=== PATIENT | male | born 1985 | race Caucasian/White ===

== ENCOUNTER 2019-07-20 07:19 | Emergency (ER) | payer MEDICAID, SELFPAY ==
[2019-07-20 07:20] VITALS: BP 149/99; PULSE 96; RESP 24; TEMP 36.3; O2SAT 97; BMI 47.2
[2019-07-20 07:30] VITALS: O2SAT 95
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
[2019-07-20] MEDS: fentaNYL 100 MCG/2 ML Ampul 50 MCG IV (07:38)
[2019-07-20 07:40] VITALS: BP 149/99; PULSE 95; RESP 24; O2SAT 95
--- NOTE | 2019-07-20 07:48 | ED.RN ---
CALLED PT'S AND NOTIFIED HER OF THE PT STATUS AND WHERE HE WAS BEING TRANSFERRED TO.
== END 2019-07-20 07:49 | disposition short-term general hospital (02) ==
PROVIDERS: Emergency Provider Emergency Medicine; PCP Family Medicine
DX: S72.92XA Unspecified fracture of left femur, initial encounter for closed fracture (principal); S29.9XXA Unspecified injury of thorax, initial encounter; S39.91XA Unspecified injury of abdomen, initial encounter; V54.5XXA Driver of pick-up truck or van injured in collision with heavy transport vehicle or bus in traffic accident, initial encounter; Y93.89 Activity, other specified; Y92.410 Unspecified street and highway as the place of occurrence of the external cause; Y99.8 Other external cause status; F17.200 Nicotine dependence, unspecified, uncomplicated
CPT/HCPCS: 96374; 99285; J7030; A4216

== ENCOUNTER 2019-07-27 13:02 | Inpatient (IN) | payer MEDICAID, SELFPAY ==
[2019-07-27] VITALS (9 sets, daily range): BP systolic 127–151; BP diastolic 68–75; PULSE 101–110; RESP 16–20; TEMP 37.4–39.5; O2SAT 94–99; BMI 43.2
--- NOTE | 2019-07-27 13:25 | RAD_ITS ---
STUDY: X-RAY CHEST REASON FOR EXAM: Male, 33 years old. Shortness of breath. TECHNIQUE: Single AP portable view of the chest. COMPARISON: None. FINDINGS: There is evidence of a subcutaneous emphysema overlying the right lateral chest wall. Mild increased markings at the lung bases slightly more prominent on the left side suggestive of bibasilar atelectasis. Questionable 2.6 cm x 1.2 cm nodule in the right midlung. There is no demonstrated pleural abnormality. Normal size heart. Normal mediastinum and emilee. Normal visualized pulmonary arteries. Normal visualized aortic arch and descending thoracic aorta. Normal visualized thoracic spine. Normal visualized ribs, clavicles, and shoulders. There is no demonstrated abnormality of the visualized soft tissue structures of the upper abdomen. RAD/Chest 1 View (Portable) IMPRESSION: Increased markings at the lung bases more prominent on the left side suggestive of atelectasis. Questionable 2.6 cm x 1.2 cm nodule in the medial aspect of the right midlung. Subcutaneous emphysema overlying the right lateral chest wall. Follow-up is recommended. Electronically Signed: Kp Ritter, at 14:45 EDT , Service support ,
[2019-07-27 14:11] LABS: Hematocrit 29.6 % (40-54); Hemoglobin 10.1 g/dL (13.0-16.5); Mean Corp Hgb Conc 34.1 g/dL (32-36); Mean Corpuscular Volume 96.7 fL (80-94); POSITIVE COUNT YES; POSITIVE DIFFERENTIAL YES; POSITIVE MORPHOLOGY YES; Platelet Count 297 K/mm3 (150-450); RBC Distribution Width CV 12.3 % (11.6-14.6); Red Blood Count 3.06 M/mm3 (4.6-6.2); White Blood Count 5.7 K/mm3 (4.4-11.0)
[2019-07-27 14:14] LABS: Differential Indicated MANUAL DIFF
[2019-07-27] MEDS: Acetaminophen 500 MG Tablet 1000 MG PO ×2 (14:21→22:53)
[2019-07-27 14:27] LABS: ALB/GLOB Ratio 0.6 RATIO (0.9-2.4); AST(SGOT) 72 U/L (15-37); Alanine Aminotransfer ALT/SGPT 105 U/L (16-61); Albumin, Serum 2.6 g/dL (3.2-5.0); Alkaline Phosphatase 104 U/L (45-117); Anion Gap 7 (5-15); BUN 15 mg/dL (7-18); BUN/Creat Ratio 20.3 RATIO (10-20); Calcium,Total 8.8 mg/dL (8.5-10.1); Chloride 101 mmol/L (98-107); Creatinine, Serum 0.74 mg/dL (0.70-1.30); EST Glomerular Filtration Rate 128 mL/min (>60); Est Glom Filt Rate - Afr Amer 155 mL/min (>60); Estimated Creatinine Clearance 130.26 ml/min; Globulin 4.2 g/dL (2.2-4.2); Glucose 100 mg/dL (74-106); Potassium 4.1 mmol/L (3.5-5.1); Protein, Total 6.8 g/dL (6.4-8.2); Sodium Level 135 mmol/L (136-145)
[2019-07-27 14:48] LABS: Eosinophil 2 % (0-5); Lymphocyte 8 % (19-41); Metamyelocyte 1 % (0-1); Monocyte 5 % (0-10); Neutrophil-Segmented 84 % (47-70); Platelet Estimate ADEQUATE (ADEQ); Red Cell Morphology NORM C+C NORMAL (NORM C&C); Total Cells Counted 100 (MANUAL DIFF)
[2019-07-27 14:50] LABS: Absolute Lymphocyte Count 0.46 X10^3/uL (0.83-4.51); Absolute Neutrophil Count 4.8 X10^3/uL (2.0-7.7)
[2019-07-27 16:32] LABS: Bacteria 0 SEEN /hpf (None Seen); Mucous, Urine 0 SEEN /hpf (<or=2+)
[2019-07-27 16:34] LABS: Color, Urine Yellow (Yellow); Glucose, Dipstick Normal (Normal); Ketone-Dipstick 5 mg/dl (Negative); Leukocyte Esterase-Dipstick 25 /ul (Negative); Nitrite-Dipstick Negative (Negative); Occult Blood-Urine 50 /ul (Negative); Protein-Dipstick 15 mg/dl (Negative); Specific Gravity, Urine 1.015 (1.002-1.030); Urine Clarity Clear (Clear); Urine Urobilinogen 4 mg/dl (Normal)
[2019-07-27 16:41] LABS: Urine Bilirubin Dipstick 1 mg/dL (Negative)
[2019-07-27 16:50] LABS: Red Blood Cells-Urine 0-5 SEEN /hpf (0-5); Squamous Epithelial Cells - UA 0-5 SEEN /hpf (0-5); White Blood Cells 0-5 SEEN /hpf (0-5)
--- NOTE | 2019-07-27 18:01 | PCM.RX.CS ---
Consult Pharmacy has been consulted to manage selected antiobiotic: Vancomycin Type of Consult: New start Labs: Sodium 135 mmol/L (136-145) L 07/27/19 13:45 Potassium 4.1 mmol/L (3.5-5.1) 07/27/19 13:45 Chloride 101 mmol/L (98-107) 07/27/19 13:45 Carbon Dioxide 27.0 mmol/L (21.0-32.0) 07/27/19 13:45 Anion Gap 7 (5-15) 07/27/19 13:45 BUN 15 mg/dL (7-18) 07/27/19 13:45 Creatinine 0.74 mg/dL (0.70-1.30) 07/27/19 13:45 Est GFR (MDRD) Af Amer 155 mL/min (>60) 07/27/19 13:45 Est GFR (MDRD) Non-Af 128 mL/min (>60) 07/27/19 13:45 BUN/Creatinine Ratio 20.3 RATIO (10-20) H 07/27/19 13:45 Glucose 100 mg/dL (74-106) 07/27/19 13:45 Goal Trough: 15-20 mcg/mL Pharmacy Plan for Drug Dosing: NEW START IV VANCOMYCIN Consulting Physician: Sementi Indication: Unknown (no progress note/ note in chart at this time) Goal Trough: 15-20 SrCr: 0.74 CrCl: 130 mL/min Comments: Initial 15mg/kg dose ordered with trough goal of 15-20. Plan is 2000mg IV ordered (admin time 07/26 @1725), then start scheduled dosing Vancomcyin Dose: 1500mg IV Q8hr to start 07/28/19 @0100 Pending Level: 07/28/19 @1630 (Prior to 4th total dose per protocol) Pharmacy Service will continue to monitor and adjust dosing as required.
[2019-07-27] MEDS: 0.9% Saline Lock 10 ML Syringe IV (19:47)
[2019-07-27] MEDS: Magnesium Hydroxide 30 ML UDC PO (19:48)
[2019-07-27] MEDS: oxyCODONE 5 MG Tablet PO (20:02)
--- NOTE | 2019-07-27 21:00 | NURSING ---
PT RATING PAIN A #15, VITALS OBTAINED. PT STATES PAIN GOES AWAY WHEN HE EXHALES, BUT THEN RETURNS WHEN INHALES. COLOR IS PINK. SKIN WARM AND DRY.
[2019-07-27] MEDS: Methocarbamol 750 MG Tablet PO (21:09)
--- NOTE | 2019-07-27 21:10 | NURSING ---
MEDICATED WITH ROBAXIN. SHARP PAIN TO L FLANK. CALL PLACED TO [facility] DEPUTY SHERIFF CHIEF TO LOAN HOSPITALIST.
--- NOTE | 2019-07-27 21:18 | NURSING ---
PT C/O PAIN RATED #8 WHCIH EXTENDS FROM L ABDOMEN UP THROUGH L CHEST. PT ROLLED TO R SIDE WITH SLIGHT RELIEF.
--- NOTE | 2019-07-27 21:20 | NURSING ---
DR SANTILLAN PHONES INTO UNIT. INFORMED OF PT'S PAIN. ORDERS GIVEN.
--- NOTE | 2019-07-27 21:23 | EKG12_ITS ---
Test Reason : CP Blood Pressure : / mmHG Vent. Rate : 100 BPM Atrial Rate : 100 BPM P-R Int : 150 ms QRS Dur : 086 ms QT Int : 328 ms P-R-T Axes : 057 053 -15 degrees QTc Int : 423 ms Normal sinus rhythm Poor R wave progression Confirmed by RONNIE HENSLEY, JUAN ([id number]), purchase request editor TERRI PICHARDO ([id number]) on 08/03/2019 1:10:55 PM Referred By: ANGELA Confirmed By:JUAN TRUJILLO MD
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
--- NOTE | 2019-07-27 21:38 | NURSING ---
EKG IN PROGRESS.
[2019-07-27] MEDS: Aspirin 325 MG Tablet PO (21:44)
--- NOTE | 2019-07-27 22:00 | NURSING ---
TO X RAY WITH ACCOUNTS PAYABLE CLERK STAFF MEMBER VIA WHEELCHAIR. PT FEELS SLIGHTLY DIZZY UPON TRANSFERRING TO W/C.
--- NOTE | 2019-07-27 22:15 | RAD_ITS ---
STUDY: X-RAY - ABDOMEN/PELVIS REASON FOR EXAM: Male, 33 years old. ABD., CHEST, AND LEFT FLANK PAIN 4 TECHNIQUE: AP supine and decubitus views of the abdomen and pelvis. COMPARISON: None. FINDINGS: Normal visualized lung bases. Mild gaseous distention of multiple small bowel loops noted throughout the abdomen as well as several air-fluid levels suggesting either ileus or a partial obstruction. There is no demonstrated free abdominal air. The visualized liver, spleen and kidneys are grossly normal in size and morphology. Normal soft tissue structures. A left femur intramedullary ramirez is partially visualized. RAD/Abd Inc Decub and/or Erect IMPRESSION: 1. Mild gaseous distention of multiple small bowel loops noted throughout the abdomen as well as several air-fluid levels suggesting either ileus or a partial obstruction. Electronically Signed: Stefan Malave MD at 23:31 EDT , Service support ,
--- NOTE | 2019-07-27 22:26 | NURSING ---
PT REMAINS IN XRAY. INCREASED DIZZINESS. WILL RETURN TO UNIT VIA A CART.
--- NOTE | 2019-07-27 22:36 | NURSING ---
RETURN FROM XRAY VIA CART AND [LACED IN ROOM. TROPONIN#1 BEING DRAWN.
[2019-07-27] MEDS: Enoxaparin 60 MG/0.6 ML Syringe SC (22:54)
[2019-07-27] MEDS: Docusate Sodium 100 MG Capsule PO (22:54)
[2019-07-27] MEDS: BACITRACIN 15 GM Tube 1 APPLIC TOPICAL (22:54)
--- NOTE | 2019-07-27 23:10 | NURSING ---
DR SANTILLAN IN PT'S ROOM TO TALK TO PT AND LOOKS AT EKG. NO NEW ORDERS.
--- NOTE | 2019-07-27 23:20 | NURSING ---
PT APPEARS MORE RESTFUL. STATES PAIN HAS EASED INTO A #7-8. VOIDS 400 ML ABY URINE. PVR 0.
[2019-07-28] VITALS (8 sets, daily range): BP systolic 121–135; BP diastolic 69–92; PULSE 82–109; RESP 12–18; TEMP 36.8–37.8; O2SAT 95–99
--- NOTE | 2019-07-28 01:07 | NURSING ---
SPOKE WITH BENJAMÍN IN PHARMACY. PT IS DIFFICULT IV STICK AND ZOSYN WILL CONTINUE TO INFUSE AT 12.5ML/HR FOR A WHILE MAKING VANCO DOSE LATE CURRENTLY ORDERED. ADVISED TO COMPLETE ZOSYN INFUSION AND HANG VANC AFTERWARDS AND THEN GET RETURN TO VANC SCHEDULED.
--- NOTE | 2019-07-28 01:32 | PCM.PN.BLA ---
Progress Note Nurse reported patient was complaining of increased left flank pain. Patient was observed at the bedside. Tender left flank. Unremarkable physical examination otherwise. Chest x-ray showed some gliosis. Abdominal x-ray showed a possible ileus or small bowel obstruction. Will make patient n.p.o. except meds with sips of water at this time. Troponin series negative. STROKE Vital Signs/Narrative: Vital Signs Temp Pulse Resp BP Pulse Ox 07/27/19 22:00 99.9 F H 108 H 16 137/68 H 99
--- NOTE | 2019-07-28 01:33 | NURSING ---
DR SANTILLAN AWARE OF PT'S KUB XRAY RESULTS AND PT IS TO BE NPO, MEDS ONLY.ALSO STATES TO ENCOURAGE INCENTIVE SPIROMETER.
--- NOTE | 2019-07-28 02:00 | NURSING ---
PT HAS BEEN RESTING QUIETLY WITH EYES CLOSED. AWAKENED FOR VITAL SIGNS. PT INFORMED OF HIS NPO (MEDS ONLY) STATUS A RESULT OF HIS XRAY READING. PT RATES CHEST AND L FLANK PAIN #6 PAIN-MEDICATED.
[2019-07-28] MEDS: oxyCODONE 5 MG Tablet PO ×3 (02:14→18:01)
--- NOTE | 2019-07-28 03:00 | NURSING ---
PT UP TO BSC AND PASSES FLATUS AND REPORTS TO FEEL BETTER AFTERWARDS. NO BM. PT WITH MILD DIZZINESS UPON SITTING UP.
[2019-07-28] MEDS: Bisacodyl 10 MG Suppository RECTAL (03:30)
[2019-07-28] MEDS: Acetaminophen 500 MG Tablet 1000 MG PO ×3 (05:41→21:02)
[2019-07-28] MEDS: BACITRACIN 15 GM Tube 1 APPLIC TOPICAL ×3 (05:42→21:00)
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
[2019-07-28 09:47] LABS: Pathologist Review Reviewed
[2019-07-28] MEDS: Lidocaine 5% Patch 2 PATCH TOPICAL (09:51)
[2019-07-28] MEDS: Docusate Sodium 100 MG Capsule PO (09:51)
[2019-07-28] MEDS: Enoxaparin 60 MG/0.6 ML Syringe SC ×2 (09:52→21:03)
[2019-07-28] MEDS: Polyethylene Glycol 3350 17 GM PACKET PO (09:52)
[2019-07-28] MEDS: Senna Tablet 2 TABLET PO (09:52)
[2019-07-28] MEDS: 0.9% Saline Lock 10 ML Syringe IV (10:10)
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
--- NOTE | 2019-07-28 11:47 | PCM.RU.PYE ---
Admission Information Status Changes from Prescreening?: Medical - pt ej bailey f 103.1 at arrival to the inpt unit and we had to work up for sepsis Actual Problem List:: Infection, Skin Intergrity, Pain, ALteration in Cmfrt, Bowel, Constipation, Alteration in Sleep, Mobility Impaired, Self Care Deficit, BP, Hypertension, Alteration/ Air Exchange, Fluid Change-Dehydration, Alteration-Leisure Activ. Potential Problem List:: DVT, Bleeding, Infection, UTI, Aspiration, Falls, Skin Integrity, Depression Risk of Complications DVT: LMWH, CHUY Hose Bleeding: Monitor Lab Values, Nursing to Teach Precautions for anti-coagulation therapy., Wound, if applicable, to be assessed every shift., Stroke patients assessed for lethargy or change in status. Infection: Clinical Staff to Monitor for S/S of infection:, S/S of infection include fever, redness, warmth, etc. Urinary Tract Infection: Monitor for frequency, burning, discomfort, or incontinence., Nursing will obtain urine sample for urinalysis and C&S when ordered. Aspiration: Clinical staff will monitor for coughing, drooling, congestion., Speech will evaluate swallowing and dsyphasia., Nursing will monitor patient swallowing during meals. Falls: Patient will be evaluated for Fall Precautions, Patient will be placed on Fall Precautions as indicated per protocol. Skin Breakdown: Nursing will assess skin daily using assessment tool., Nursing will place on Skin Breakdown Precautions as indicated. Pain: Clinical staff will assess patient's pain level per protocol., Medications will be given, if needed, and the pain level reassessed., Other methods: Massage, distraction, decrease stimulus, etc. used PRN. Plan of Care Patient requires physician specializing in physical medicine and rehab oversight to provide close medical supervision of rehab issues including: Pain Management, Sleep Problems, Bowel and Bladder, Medical and co-morbidity Management, DVT prophylaxis, Rehabilitation Leadership, Coordination of treatment team Patient needs Physical Therapy: For a minimum of 1 hour, At least 5 out of 7 days Patient needs Physical Therapy to improve:: Mobility, Mobility, Mobility, Strengthening, Transfers, Stretching, ROM, Endurance, Stairs, Gait, Balance Patient needs Occupational Therapy: For a minimum of 1 hour, At least 5 out of 7 days Patient needs Occupational Therapy to improve ADL's incl.: Eating, Grooming, Bathing, Dressing, Toileting, Toilet transfers, Community Reintegration, Higher functioning activities, Household tasks, Adaptive Equipment, Splinting, Other activities as determined Patient requires 24/7 Rehabilitation Nursing for: Pain Issues, Identifying and preventing risk factors, Monitoring and reporting current medical conditions, Assisting with ambulation, transfer, and all ADL's, Teaching patients about disease process and medications, Family teaching, Providing safe environment, Bowel and Bladder Issues, Skin integrity, Medication Management Patient needs Buffing Wheel Former Machine/ Case Management for: Discharge Planning, Arranging Home Equipment or Services, Family Interventions Patient needs Dietary and Nutrition Services for: Adequate Nutrition, Nutritional Supplements, Nutritional Education Goals Patient will remain: free from falls, or injury at time of discharge. Patient will perform bed mobility at: MOD I level of assist. Patient will complete transfers from bed to chair at: MOD I level of assist. Patient will ambulate: 100 feet, with MOD I assist, with LRD Patient will complete upper body dressing at: MOD I level of assist. Patient will complete lower body dressing at: MOD I level of assist. Patient will complete toileting at: MOD I level of assist. Patient will perform bathing at: MOD I level of assist. Patient will complete grooming at: MOD I level of assist. Patient will complete home management skills at: MOD I level of assist. Patient will achieve: 12 stairs, at MOD I assist Patient will have pain level of: of 3 or less Patient's skin will: remain intact, free from infection. Patient will receive: adequate nutrition. Discharge Planning Pt Prognosis for Sig. Practical Improv. w/in Reasonable Time: Good Estimated Length of stay (days): 14 Anticipated D/C Destination: Home with Outpt Therapy
--- NOTE | 2019-07-28 12:06 | NURSING ---
circumference of neck measured at this time. 48 cm.
[2019-07-28] MEDS: 0.9% Normal Saline 1,000 ML 100 ML IV (13:53)
--- NOTE | 2019-07-28 15:09 | NURSING ---
wound photo: left lower leg
[2019-07-28 17:24] LABS: Vancomycin, Trough Level 12.8 ug/mL (5.0-15.0)
--- NOTE | 2019-07-28 19:35 | PCM.RX.CS ---
Consult Pharmacy has been consulted to manage selected antiobiotic: Vancomycin Type of Consult: Follow-up Suspected Infection: Skin/Soft tissue Prior Doses of Antibiotics Received/Current Regimen: 1500mg iv q8h. Labs: Sodium 135 mmol/L (136-145) L 07/27/19 13:45 Potassium 4.1 mmol/L (3.5-5.1) 07/27/19 13:45 Chloride 101 mmol/L (98-107) 07/27/19 13:45 Carbon Dioxide 27.0 mmol/L (21.0-32.0) 07/27/19 13:45 Anion Gap 7 (5-15) 07/27/19 13:45 BUN 15 mg/dL (7-18) 07/27/19 13:45 Creatinine 0.74 mg/dL (0.70-1.30) 07/27/19 13:45 Est GFR (MDRD) Af Amer 155 mL/min (>60) 07/27/19 13:45 Est GFR (MDRD) Non-Af 128 mL/min (>60) 07/27/19 13:45 BUN/Creatinine Ratio 20.3 RATIO (10-20) H 07/27/19 13:45 Glucose 100 mg/dL (74-106) 07/27/19 13:45 Vancomycin Trough 12.8 ug/mL (5.0-15.0) 07/28/19 16:30 Microbiology: Microbiology 07/28/19 11:00 Suture Gram Stain - Final 07/27/19 16:20 Urine, Catheterized Urine Culture - Preliminary Culture exhibits no growth. Weight used for dosin.7 kg Estimated Creatinine Clearance: 130ML/MIN Goal Trough: 15-20 mcg/mL Pharmacy Plan for Drug Dosing: Has been on 1500mg iv q8h. Trough today was 12.8 (goal 15-20mcg/ml). No new renal labs. Will increase dose to 1750mg iv q8h and get a repeat trough level on 07.30.19. Pharmacy Service will continue to monitor and adjust dosing as required. Follow-Up Labs: Trough Vancomycin - 07.30.19 @0130 before 0200 dose
[2019-07-29] MEDS: oxyCODONE 5 MG Tablet PO ×3 (01:41→15:08)
[2019-07-29] MEDS: 0.9% Saline Lock 10 ML Syringe IV ×3 (01:49→22:48)
[2019-07-29 01:51] VITALS: BP 141/81; PULSE 90; RESP 16; TEMP 36.8; O2SAT 98
[2019-07-29 05:41] LABS: Hematocrit 27.4 % (40-54); Hemoglobin 9.1 g/dL (13.0-16.5); Mean Corp Hgb Conc 33.2 g/dL (32-36); Mean Corpuscular Hgb 32.4 pg (27.0-32.0); Mean Corpuscular Volume 97.5 fL (80-94); Mean Platelet Vol. 9.9 fl (6.2-12.0); POSITIVE COUNT YES; POSITIVE MORPHOLOGY YES; Platelet Count 317 K/mm3 (150-450); RBC Distribution Width CV 12.6 % (11.6-14.6); RBC Distribution Width SD 44.1 fl (35.1-43.9); Red Blood Count 2.81 M/mm3 (4.6-6.2); White Blood Count 4.1 K/mm3 (4.4-11.0)
[2019-07-29] MEDS: BACITRACIN 15 GM Tube 1 APPLIC TOPICAL ×3 (05:43→22:44)
[2019-07-29] MEDS: Acetaminophen 500 MG Tablet 1000 MG PO ×3 (05:44→22:41)
[2019-07-29 05:51] VITALS: BP 137/69; PULSE 93; RESP 18; TEMP 36.6; O2SAT 97
[2019-07-29 06:03] LABS: ALB/GLOB Ratio 0.7 RATIO (0.9-2.4); AST(SGOT) 50 U/L (15-37); Alanine Aminotransfer ALT/SGPT 84 U/L (16-61); Albumin, Serum 2.3 g/dL (3.2-5.0); Alkaline Phosphatase 87 U/L (45-117); Anion Gap 8 (5-15); BUN 14 mg/dL (7-18); BUN/Creat Ratio 20.8 RATIO (10-20); Calcium,Total 8.3 mg/dL (8.5-10.1); Chloride 106 mmol/L (98-107); Cholesterol 172 mg/dL (200); Creatinine, Serum 0.67 mg/dL (0.70-1.30); EST Glomerular Filtration Rate 142 mL/min (>60); Est Glom Filt Rate - Afr Amer 172 mL/min (>60); Estimated Creatinine Clearance 143.87 ml/min; Globulin 3.4 g/dL (2.2-4.2); Glucose 103 mg/dL (74-106); High Density Lipoprotein 15 mg/dL; Phosphorus 3.5 mg/dL (2.5-4.9); Potassium 3.7 mmol/L (3.5-5.1); Protein, Total 5.7 g/dL (6.4-8.2); Sodium Level 138 mmol/L (136-145); Triglycerides 253 mg/dL; Very Low Density Lipoprotein 51 mg/dL (5-40)
[2019-07-29 06:19] LABS: Eosinophil 3 % (0-5); Lymphocyte 14 % (19-41); Metamyelocyte 1 % (0-1); Monocyte 10 % (0-10); Neutrophil-Band 2 % (0-5); Neutrophil-Segmented 70 % (47-70); Platelet Estimate ADEQUATE (ADEQ); Red Cell Morphology NORM C+C NORMAL (NORM C&C); Total Cells Counted 100 (MANUAL DIFF)
[2019-07-29 06:20] LABS: Differential Indicated MANUAL DIFF
[2019-07-29 06:21] LABS: Lymphocyte # 0.57 X10^3/ul (4.0)
[2019-07-29 06:22] LABS: Absolute Lymphocyte Count 0.57 X10^3/uL (0.83-4.51); Neutrophil # 2.98 X10^3/uL (2.7-7.7)
--- NOTE | 2019-07-29 09:02 | NURSING ---
Around 0710, shift manager nurse informed this nurse that IV in hand was out. Lindsayn paused. This nurse attempted to restart IV x2 and was unsuccessful. Laurie Merino advertising dispatch clerks supervisor aware.
[2019-07-29] MEDS: Enoxaparin 60 MG/0.6 ML Syringe SC ×2 (09:19→22:41)
[2019-07-29] MEDS: Polyethylene Glycol 3350 17 GM PACKET PO (09:20)
[2019-07-29] MEDS: Lidocaine 5% Patch 2 PATCH TOPICAL (09:26)
--- NOTE | 2019-07-29 09:30 | NURSING ---
pt did not take the scheduled colace or senokot today. Pt stated that yesterdays day and night court magistrate nurse said that he no longer needed to take it. Pt last stool was this morning and is going again right now.
[2019-07-29 10:00] VITALS: BP 119/75; PULSE 83; RESP 18; TEMP 36.3; O2SAT 97
--- NOTE | 2019-07-29 11:45 | RAD_ITS ---
STUDY: X-RAY - ACUTE ABDOMINAL SERIES REASON FOR EXAM: Male, 33 years old. FOLLOW UP FOR OBSTRUCTION TECHNIQUE: Single view of the chest. Supine, and erect view(s) of the abdomen were obtained. COMPARISON: Comparison is made with prior chest radiograph dated July 27, 2019. FINDINGS: Improved aeration at the left lung base with mild residual changes. Normal size heart. Normal mediastinum and emilee. Normal visualized pulmonary arteries. Normal visualized aortic arch and descending thoracic aorta. There is a non-specific bowel gas pattern. The soft tissue structures of the abdomen and pelvis are unremarkable. Normal visualized osseous structures. RAD/Acute Abdomen Inc Chest IMPRESSION: Nonspecific bowel gas pattern. Electronically Signed: Kp Ritter, at 14:31 EDT , Service support ,
[2019-07-29 11:50] LABS: Pathologist Review Reviewed
--- NOTE | 2019-07-29 12:14 | NURSING ---
Vancomycin late, not given yet d/t iv site went bad and hard stick. Wilber sheet metal duct worker supervisor attempted twice and Arnold Hughes attempted twice. Arnold was able to get on 2nd try. Ezra running late d/t no iv site for such a long time.
[2019-07-29] MEDS: Methocarbamol 750 MG Tablet PO (12:44)
[2019-07-29] MEDS: 0.9% Normal Saline 1,000 ML 100 ML IV (15:06)
--- NOTE | 2019-07-29 15:23 | NURSING ---
discussed with therapy and personal alarm removed. pt voiced understanding to use call light for any needs.
--- NOTE | 2019-07-29 15:48 | NURSING ---
Trang Truong from intelligent systems engineer called back and stated that she would be here to insert PICC line for Mr. Silva in approximately 45min.
--- NOTE | 2019-07-29 16:45 | NURSING ---
Trang from manager diesel here at this time.
[2019-07-29] MEDS: levoFLOXacin 500 MG Tablet PO (17:51)
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
--- NOTE | 2019-07-29 19:19 | NURSING ---
Trang Lanza RN informed this nurse via call that PICC line is able to be used. Lissette URBANO aware.
[2019-07-29 19:38] VITALS: BP 138/73; PULSE 95; RESP 18; TEMP 37.1; O2SAT 98
[2019-07-30] MEDS: levoFLOXacin 500 MG Tablet PO (06:21)
[2019-07-30] MEDS: oxyCODONE 5 MG Tablet PO ×3 (06:25→20:43)
[2019-07-30] MEDS: BACITRACIN 15 GM Tube 1 APPLIC TOPICAL ×3 (06:26→20:42)
[2019-07-30 07:00] VITALS: BP 184/72; PULSE 81; RESP 16; TEMP 36.8; O2SAT 96
[2019-07-30] MEDS: 0.9% Saline Lock 10 ML Syringe IV ×2 (07:29→22:35)
[2019-07-30] MEDS: Lidocaine 5% Patch 2 PATCH TOPICAL (08:12)
[2019-07-30 08:21] LABS: Vancomycin, Trough Level 14.9 ug/mL (5.0-15.0)
[2019-07-30] MEDS: Juven (unflavored) Packet 1 PACKET PO ×2 (08:27→17:24)
[2019-07-30] MEDS: Multivitamins,Therapeutic Tablet 1 TABLET PO (08:29)
[2019-07-30] MEDS: Enoxaparin 60 MG/0.6 ML Syringe SC ×2 (09:35→20:41)
--- NOTE | 2019-07-30 09:45 | PCM.RX.CS ---
Consult Pharmacy has been consulted to manage selected antiobiotic: Vancomycin Type of Consult: Follow-up Suspected Infection: Skin/Soft tissue Labs: Sodium 138 mmol/L (136-145) 07/29/19 05:25 Potassium 3.7 mmol/L (3.5-5.1) 07/29/19 05:25 Chloride 106 mmol/L (98-107) 07/29/19 05:25 Carbon Dioxide 24.0 mmol/L (21.0-32.0) 07/29/19 05:25 Anion Gap 8 (5-15) 07/29/19 05:25 BUN 14 mg/dL (7-18) 07/29/19 05:25 Creatinine 0.67 mg/dL (0.70-1.30) L 07/29/19 05:25 Est GFR (MDRD) Af Amer 172 mL/min (>60) 07/29/19 05:25 Est GFR (MDRD) Non-Af 142 mL/min (>60) 07/29/19 05:25 BUN/Creatinine Ratio 20.8 RATIO (10-20) H 07/29/19 05:25 Glucose 103 mg/dL (74-106) 07/29/19 05:25 Vancomycin Trough 14.9 ug/mL (5.0-15.0) 07/30/19 06:40 Microbiology: Microbiology 07/28/19 11:00 Suture Gram Stain - Final 07/28/19 11:00 Suture Wound Culture - Final Bacillus sp., not anthracis 07/27/19 16:20 Urine, Catheterized Urine Culture - Final Culture exhibits no growth. Goal Trough: 15-20 mcg/mL Pharmacy Plan for Drug Dosing: VANCOMYCIN LEVEL RECEIVED Current Vancomycin Dose: 1750mg IV Q8hr (0700/1500/2300) Number of Doses Received: 3 Vancomycin Level: 14.9 Hours Since Last Dose: 7.5 Renal Function: 0.67, CrCl = 144 mL/min (07/29/19) Renal Function Trend: stable Lab/Micro: Suture Cx growing bacilus species, no sens yet. All other Cx are negative at this time Vancomycin Plan/Comments: Will continue with current vancomycin dose. Current trough goal 15-20. Will check another trough in 2 days to ensure patient therapeutic at that time. Pending Level: 08/01/19 @0630 Pharmacy Service will continue to monitor and adjust dosing as required.
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
--- NOTE | 2019-07-30 15:40 | NURSING ---
PICC dressing changed and 5 cm length of catheter observed, no redness or pain at insertion site to Right upper arm. Arm circumference 37 cm.
[2019-07-30 18:53] VITALS: BP 123/75; PULSE 91; RESP 16; TEMP 36.9; O2SAT 99
[2019-07-31] MEDS: BACITRACIN 15 GM Tube 1 APPLIC TOPICAL ×3 (06:19→21:10)
[2019-07-31] MEDS: levoFLOXacin 500 MG Tablet PO (06:20)
[2019-07-31] MEDS: Methocarbamol 750 MG Tablet PO ×2 (06:27→13:44)
[2019-07-31 08:36] VITALS: BP 120/75; PULSE 90; RESP 16; TEMP 36.6; O2SAT 98
[2019-07-31] MEDS: Juven (unflavored) Packet 1 PACKET PO ×2 (08:47→16:43)
[2019-07-31] MEDS: Lidocaine 5% Patch 2 PATCH TOPICAL (08:47)
[2019-07-31] MEDS: Multivitamins,Therapeutic Tablet 1 TABLET PO (08:47)
[2019-07-31] MEDS: Enoxaparin 60 MG/0.6 ML Syringe SC ×2 (08:48→21:11)
--- NOTE | 2019-07-31 15:00 | NURSING ---
Refused to walk around unit for exercise but did walk to and from the bathroom x1 assist via walker and gait steady but slow.
[2019-07-31 19:18] VITALS: BP 139/79; PULSE 82; RESP 16; TEMP 36.4; O2SAT 96
[2019-07-31 22:00] VITALS: PULSE 78; RESP 16; O2SAT 96
[2019-07-31] MEDS: oxyCODONE 5 MG Tablet PO (22:35)
[2019-07-31] MEDS: 0.9% Saline Lock 10 ML Syringe IV (22:36)
[2019-08-01] MEDS: BACITRACIN 15 GM Tube 1 APPLIC TOPICAL ×3 (05:19→21:01)
[2019-08-01] MEDS: levoFLOXacin 500 MG Tablet PO (05:19)
[2019-08-01] MEDS: oxyCODONE 5 MG Tablet PO ×2 (05:32→22:30)
[2019-08-01 06:16] LABS: Absolute Lymphocyte Count 1.58 X10^3/uL (0.83-4.51); Absolute Neutrophil Count 3.9 X10^3/uL (2.0-7.7); Basophil# 0.07 X10^3/uL; Basophil% 1.1 % (0-1); Eosinophil# 0.28 X10^3/uL; Eosinophils% 4.2 % (0-5); Hematocrit 28.5 % (40-54); Hemoglobin 9.2 g/dL (13.0-16.5); Lymphocyte # 1.58 X10^3/ul (4.0); Mean Corp Hgb Conc 32.3 g/dL (32-36); Mean Corpuscular Hgb 32.4 pg (27.0-32.0); Mean Corpuscular Volume 100.4 fL (80-94); Mean Platelet Vol. 9.7 fl (6.2-12.0); Monocyte# 0.42 X10^3/uL; Monocyte% 6.4 % (0-10); NRBC Flagged by Analyzer 0 % (0-5); Neutrophil # 3.93 X10^3/uL (2.7-7.7); Neutrophil % 59.6 % (47-70); Platelet Count 489 K/mm3 (150-450); RBC Distribution Width CV 13.4 % (11.6-14.6); RBC Distribution Width SD 46.6 fl (35.1-43.9); Red Blood Count 2.84 M/mm3 (4.6-6.2); White Blood Count 6.6 K/mm3 (4.4-11.0)
[2019-08-01 06:30] LABS: Erythrocyte Sedimentation Rate 26 mm/hr (0-15)
[2019-08-01 06:47] LABS: Anion Gap 8 (5-15); BUN 11 mg/dL (7-18); BUN/Creat Ratio 17.7 RATIO (10-20); Calcium,Total 8.7 mg/dL (8.5-10.1); Chloride 109 mmol/L (98-107); Creatinine, Serum 0.62 mg/dL (0.70-1.30); EST Glomerular Filtration Rate 156 mL/min (>60); Est Glom Filt Rate - Afr Amer 188 mL/min (>60); Estimated Creatinine Clearance 155.48 ml/min; Glucose 104 mg/dL (74-106); Potassium 3.6 mmol/L (3.5-5.1); Sodium Level 141 mmol/L (136-145)
[2019-08-01 06:58] LABS: Vancomycin, Trough Level 16.1 ug/mL (5.0-15.0)
[2019-08-01 07:00] VITALS: BP 120/62; PULSE 93; RESP 16; TEMP 37.1; O2SAT 96
[2019-08-01] MEDS: Multivitamins,Therapeutic Tablet 1 TABLET PO (07:41)
[2019-08-01] MEDS: Juven (unflavored) Packet 1 PACKET PO ×2 (07:41→17:03)
[2019-08-01] MEDS: Lidocaine 5% Patch 2 PATCH TOPICAL (07:46)
--- NOTE | 2019-08-01 07:48 | PCM.RX.CS ---
Consult Pharmacy has been consulted to manage selected antiobiotic: Vancomycin Type of Consult: Follow-up Suspected Infection: Skin/Soft tissue Prior Doses of Antibiotics Received/Current Regimen: 1750MG IV Q8H Labs: Sodium 141 mmol/L (136-145) 08/01/19 06:08 Potassium 3.6 mmol/L (3.5-5.1) 08/01/19 06:08 Chloride 109 mmol/L (98-107) H 08/01/19 06:08 Carbon Dioxide 24.0 mmol/L (21.0-32.0) 08/01/19 06:08 Anion Gap 8 (5-15) 08/01/19 06:08 BUN 11 mg/dL (7-18) 08/01/19 06:08 Creatinine 0.62 mg/dL (0.70-1.30) L 08/01/19 06:08 Est GFR (MDRD) Af Amer 188 mL/min (>60) 08/01/19 06:08 Est GFR (MDRD) Non-Af 156 mL/min (>60) 08/01/19 06:08 BUN/Creatinine Ratio 17.7 RATIO (10-20) 08/01/19 06:08 Glucose 104 mg/dL (74-106) 08/01/19 06:08 Vancomycin Trough 16.1 ug/mL (5.0-15.0) H 08/01/19 06:08 Microbiology: Microbiology 07/28/19 11:00 Suture Gram Stain - Final 07/28/19 11:00 Suture Wound Culture - Final Bacillus sp., not anthracis 07/27/19 16:20 Urine, Catheterized Urine Culture - Final Culture exhibits no growth. Weight used for dosin kg Estimated Creatinine Clearance: >100ml/min Goal Trough: 15-20 mcg/mL Pharmacy Plan for Drug Dosing: Trough today 16.1, level 6.13 was 14.9. Renal Cr 0.62 with CrCl >100 ml/min. Will continue same dose and repeat trough level in 4 days. Pharmacy Service will continue to monitor and adjust dosing as required. Follow-Up Labs: Trough Vancomycin - 6.19.20 @0630 before 0700 dose
[2019-08-01] MEDS: Enoxaparin 60 MG/0.6 ML Syringe SC ×2 (09:00→21:01)
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
[2019-08-01 10:39] LABS: Alkaline Phosphatase 90 U/L (45-117)
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
--- NOTE | 2019-08-01 14:01 | CASEMGMT ---
Social Work IDT met with patient for Team Meeting. Discussed patient's progress in therapy. Pt is SBA for transfers, walking 120 ft x2 with FWW SBA, completed 3 steps CGA, setup for bathing and UE ADLs, min assit for LE dressing for the sunshine hose, SBA-CGA for toileting. Pain is controlled. Receiving IV ATB. The goal is for pt to return home with at the end of IVs. Will f/u with PT/OT/SN, and get FWW. Explained insurance with [employer] 07/31 and continued stay is not guaranteed. Will continue to follow for anticipated DC date 08/05. Erica Ng, [employer] TECH
[2019-08-01] MEDS: 0.9% Saline Lock 10 ML Syringe IV ×2 (14:34→22:41)
[2019-08-01] MEDS: Ibuprofen 600 MG Tablet PO ×2 (14:34→21:01)
[2019-08-01] MEDS: Acetaminophen 500 MG Tablet 1000 MG PO ×2 (14:34→21:02)
--- NOTE | 2019-08-01 15:00 | NURSING ---
Dr. Zuluaga orthopedic surgeon provided new order for lovenox stop date for 7-4 after HS dose given and new order to DC sutures on 08-07. Patient aware of current orders. Dr. Oreilly aware of orders.
--- NOTE | 2019-08-01 15:07 | NURSING ---
wound photo: left lower leg
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
[2019-08-01 21:09] VITALS: BP 109/62; PULSE 86; RESP 16; TEMP 36.8; O2SAT 95
[2019-08-02] MEDS: BACITRACIN 15 GM Tube 1 APPLIC TOPICAL ×3 (06:17→21:25)
[2019-08-02] MEDS: levoFLOXacin 500 MG Tablet PO (06:19)
[2019-08-02] MEDS: Ibuprofen 600 MG Tablet PO ×3 (06:20→21:25)
[2019-08-02] MEDS: Acetaminophen 500 MG Tablet 1000 MG PO ×3 (06:20→21:26)
[2019-08-02 08:44] VITALS: BP 127/70; PULSE 91; RESP 16; TEMP 37; O2SAT 98
[2019-08-02] MEDS: Multivitamins,Therapeutic Tablet 1 TABLET PO (09:10)
[2019-08-02] MEDS: Juven (unflavored) Packet 1 PACKET PO ×2 (09:10→16:33)
[2019-08-02] MEDS: Lidocaine 5% Patch 2 PATCH TOPICAL (09:11)
[2019-08-02] MEDS: Enoxaparin 60 MG/0.6 ML Syringe SC ×2 (09:11→21:25)
[2019-08-02] MEDS: oxyCODONE 5 MG Tablet PO ×2 (09:20→22:33)
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
[2019-08-02 21:08] VITALS: BP 106/64; PULSE 83; RESP 17; TEMP 37; O2SAT 96
[2019-08-02] MEDS: 0.9% Saline Lock 10 ML Syringe IV (22:39)
[2019-08-03] MEDS: levoFLOXacin 500 MG Tablet PO (05:10)
[2019-08-03] MEDS: BACITRACIN 15 GM Tube 1 APPLIC TOPICAL ×3 (05:10→20:30)
[2019-08-03] MEDS: Acetaminophen 500 MG Tablet 1000 MG PO ×3 (05:10→22:08)
[2019-08-03] MEDS: Ibuprofen 600 MG Tablet PO ×3 (05:11→22:08)
[2019-08-03] MEDS: Multivitamins,Therapeutic Tablet 1 TABLET PO (08:16)
[2019-08-03] MEDS: Lidocaine 5% Patch 2 PATCH TOPICAL (08:16)
[2019-08-03] MEDS: Enoxaparin 60 MG/0.6 ML Syringe SC ×2 (08:16→20:30)
[2019-08-03] MEDS: Juven (unflavored) Packet 1 PACKET PO ×2 (08:16→17:56)
[2019-08-03 08:25] VITALS: BP 114/71; PULSE 83; RESP 17; TEMP 36.6; O2SAT 97
[2019-08-03] MEDS: oxyCODONE 5 MG Tablet PO ×2 (11:11→23:28)
[2019-08-03 19:24] VITALS: BP 119/66; PULSE 94; RESP 16; TEMP 36.8
[2019-08-04] MEDS: Ibuprofen 600 MG Tablet PO ×3 (06:36→21:49)
[2019-08-04] MEDS: BACITRACIN 15 GM Tube 1 APPLIC TOPICAL ×3 (06:36→21:50)
[2019-08-04] MEDS: Acetaminophen 500 MG Tablet 1000 MG PO ×3 (06:37→21:48)
[2019-08-04] MEDS: levoFLOXacin 500 MG Tablet PO (06:40)
[2019-08-04] MEDS: 0.9% Saline Lock 10 ML Syringe IV ×3 (06:44→23:03)
[2019-08-04 08:11] VITALS: BP 123/73; PULSE 78; RESP 16; TEMP 36.7; O2SAT 100
[2019-08-04] MEDS: Multivitamins,Therapeutic Tablet 1 TABLET PO (08:12)
[2019-08-04] MEDS: Juven (unflavored) Packet 1 PACKET PO ×2 (08:12→17:23)
[2019-08-04] MEDS: Enoxaparin 60 MG/0.6 ML Syringe SC ×2 (08:13→21:49)
[2019-08-04] MEDS: Lidocaine 5% Patch 2 PATCH TOPICAL (08:16)
[2019-08-04] MEDS: oxyCODONE 5 MG Tablet PO ×3 (08:20→23:02)
--- NOTE | 2019-08-04 10:43 | CASEMGMT ---
Social Work Spoke with pt about DC plans for 08/05 as IVs will be done. Pt agreeable. Pt requesting outpatient therapy at [facility] and [facility]. Referrals made to [facility] for PT and [facility]. Plan: DC home with 08/05, [facility] PT, [facility]. Erica Ng, ETL INFORMATICA ARCHITECT CALENDERING SUPERVISOR
--- NOTE | 2019-08-04 19:46 | PCM.PN.BLA ---
Progress Note Afebrile VSS Maintaining appropriate oxygen saturation on RA Oral intake is good Pain control is adequate Discussed with nursing - no problems that need addressed Reviewed the PT/OT notes Medication list reviewed. Denies diarrhea. The erythema on the left back has faded and is smaller and there is no longer any warmth to touch The wound on the LLE distal to the tibial plateau is stable with no further increase in dimension. Minimal erythema, no purulent DC about 30% slough today. Silver alginate dressing in place. Impressions 1. cellulitis of the left back - much improved 2. Cellulitis and abscess of the LLE - stable and starting to look better with less slough and less erythema continue current antibiotics.......no need for antibiotics at [place] Inpatient E&M: [id number] [facility] Hosp L1
[2019-08-04 21:43] VITALS: BP 129/65; PULSE 88; RESP 16; TEMP 36.9; O2SAT 97
[2019-08-05] MEDS: 0.9% Saline Lock 10 ML Syringe IV ×3 (01:26→23:00)
[2019-08-05] MEDS: Acetaminophen 500 MG Tablet 1000 MG PO ×3 (06:37→21:15)
[2019-08-05] MEDS: Ibuprofen 600 MG Tablet PO ×3 (06:38→21:16)
[2019-08-05] MEDS: BACITRACIN 15 GM Tube 1 APPLIC TOPICAL ×3 (06:38→21:16)
[2019-08-05 07:02] LABS: Vancomycin, Trough Level 18.4 ug/mL (5.0-15.0)
[2019-08-05] MEDS: Lidocaine 5% Patch 2 PATCH TOPICAL (08:28)
[2019-08-05] MEDS: Multivitamins,Therapeutic Tablet 1 TABLET PO (08:28)
[2019-08-05] MEDS: Juven (unflavored) Packet 1 PACKET PO ×2 (08:28→17:02)
[2019-08-05] MEDS: Enoxaparin 60 MG/0.6 ML Syringe SC (08:29)
[2019-08-05] MEDS: oxyCODONE 5 MG Tablet PO ×2 (08:35→22:59)
[2019-08-05 09:13] VITALS: BP 132/68; PULSE 85; RESP 16; TEMP 36.7; O2SAT 98
--- NOTE | 2019-08-05 09:45 | NURSING ---
This nurse received call from DR. Zuluaga nurse, orthopedic surgeon that patient does not need Lovenox for home going but instead, ASA 81 BID for the remainder of the 2 weeks. Patient can also have all sutures removed tomorrow 6- instead of the original date -. Dr. Oreilly aware.
--- NOTE | 2019-08-05 10:15 | PCM.RX.CS ---
Consult Pharmacy has been consulted to manage selected antiobiotic: Vancomycin Type of Consult: Follow-up Prior Doses of Antibiotics Received/Current Regimen: Medications Vancomycin HCl 1,750 mg/ (Sodium Chloride) 535 mls @ 250 mls/hr IV Q8H [facility] Last Admin: 08/05/19 09:00 Dose: Infused Documented by: Labs: Sodium 141 mmol/L (136-145) 08/01/19 06:08 Potassium 3.6 mmol/L (3.5-5.1) 08/01/19 06:08 Chloride 109 mmol/L (98-107) H 08/01/19 06:08 Carbon Dioxide 24.0 mmol/L (21.0-32.0) 08/01/19 06:08 Anion Gap 8 (5-15) 08/01/19 06:08 BUN 11 mg/dL (7-18) 08/01/19 06:08 Creatinine 0.62 mg/dL (0.70-1.30) L 08/01/19 06:08 Est GFR (MDRD) Af Amer 188 mL/min (>60) 08/01/19 06:08 Est GFR (MDRD) Non-Af 156 mL/min (>60) 08/01/19 06:08 BUN/Creatinine Ratio 17.7 RATIO (10-20) 08/01/19 06:08 Glucose 104 mg/dL (74-106) 08/01/19 06:08 Vancomycin Trough 18.4 ug/mL (5.0-15.0) H 08/05/19 06:33 Microbiology: Microbiology 08/01/19 11:00 Wound Drainage - Aerobic & Anaerobic Swabs Gram Stain - Final 08/01/19 11:00 Wound Drainage - Aerobic & Anaerobic Swabs Wound Culture - Final No growth aerobically. 08/01/19 11:00 Wound Drainage - Aerobic & Anaerobic Swabs Anaerobic Culture - Preliminary No growth in 48 hours. 07/27/19 13:55 Blood Culture (Wb) - Right Hand Blood Culture - Final No growth in 5 days. 07/27/19 13:45 Blood Culture (Wb) - Anticubital Right Blood Culture - Final No growth in 5 days. 07/28/19 11:00 Suture Gram Stain - Final 07/28/19 11:00 Suture Wound Culture - Final Bacillus sp., not anthracis 07/27/19 16:20 Urine, Catheterized Urine Culture - Final Culture exhibits no growth. Goal Trough: 15-20 mcg/mL Pharmacy Plan for Drug Dosing: Patient's vanc level is within goal range, but seems to be slowly accumulating. Given that we are now just past the 7 day rudy, would recommend checking level after 48 hours to be sure it does not move to non-linear kinetics. If still in range after 48 hours, consider moving to every 4 or 7 day checks. Pharmacy Service will continue to monitor and adjust dosing as required. Follow-Up Labs: Trough Vancomycin - 08/06 @ 0630
[2019-08-05 19:26] VITALS: BP 126/75; PULSE 88; RESP 18; TEMP 36.9; O2SAT 99
[2019-08-05] MEDS: Aspirin 81 MG TAB.CHEW PO (21:16)
[2019-08-06] MEDS: 0.9% Saline Lock 10 ML Syringe IV ×2 (01:41→06:52)
[2019-08-06] MEDS: Ibuprofen 600 MG Tablet PO (06:50)
[2019-08-06] MEDS: BACITRACIN 15 GM Tube 1 APPLIC TOPICAL (06:50)
[2019-08-06] MEDS: Acetaminophen 500 MG Tablet 1000 MG PO (06:50)
[2019-08-06 07:46] VITALS: BP 113/74; PULSE 92; RESP 16; TEMP 36.6; O2SAT 99
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
[2019-08-06] MEDS: Lidocaine 5% Patch 2 PATCH TOPICAL (09:06)
[2019-08-06] MEDS: oxyCODONE 5 MG Tablet PO (09:06)
[2019-08-06] MEDS: Multivitamins,Therapeutic Tablet 1 TABLET PO (09:06)
[2019-08-06] MEDS: Aspirin 81 MG TAB.CHEW PO (09:06)
[2019-08-06] MEDS: Juven (unflavored) Packet 1 PACKET PO (09:11)
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
--- NOTE | 2019-08-06 11:34 | NURSING ---
discharged home with . discharge instruction, medications, appointments and dressing changed instructions reviewed with pt. voiced understanding. denies questions or concerns
[2019-08-06 11:36] VITALS: BP 113/74; PULSE 88; RESP 16; TEMP 36.6; O2SAT 99
== END 2019-08-06 11:30 | disposition home or self-care (01) | DRG 862 ==
PROVIDERS: Hospitalist; Admitting Provider Internal Medicine; PCP Family Medicine; Visit Provider Internal Medicine
DX: S72.302D Unspecified fracture of shaft of left femur, subsequent encounter for closed fracture with routine healing (principal); S22.20XD Unspecified fracture of sternum, subsequent encounter for fracture with routine healing; S22.43XD Multiple fractures of ribs, bilateral, subsequent encounter for fracture with routine healing; S32.402D Unspecified fracture of left acetabulum, subsequent encounter for fracture with routine healing; S52.022D Displaced fracture of olecranon process without intraarticular extension of left ulna, subsequent encounter for closed fracture with routine healing; S26.91XD Contusion of heart, unspecified with or without hemopericardium, subsequent encounter; F10.21 Alcohol dependence, in remission; E66.01 Morbid (severe) obesity due to excess calories; I10 Essential (primary) hypertension; Z68.41 Body mass index [BMI] 40.0-44.9, adult; S27.0XXD Traumatic pneumothorax, subsequent encounter; F17.210 Nicotine dependence, cigarettes, uncomplicated; S37.011D Minor contusion of right kidney, subsequent encounter; T79.7XXD Traumatic subcutaneous emphysema, subsequent encounter; V44.5XXD Car driver injured in collision with heavy transport vehicle or bus in traffic accident, subsequent encounter; D62 Acute posthemorrhagic anemia; L03.312 Cellulitis of back [any part except buttock and flank]
CPT/HCPCS: 36415; 36569; 71045; 71046; 71250; 73701; 74019; 74022; 80048; 80053; 80061; 80202; 81001; 83605; 83735; 84075; 84100; 84484; 85025; 85652; 86140; 87040; 87070; 87075; 87086; 87205; 87635; 93005; 94667; 94762; 97110; 97116; 97162; 97166; 97530; 97535; 97802; 97803; 99251; G2023; J7030; J7040; J7050; A4216; G0463; U0003

== ENCOUNTER 2019-08-10 09:58 | Outpatient (RCR) | payer MEDICAID, SELFPAY ==
[2019-07-27 13:18] VITALS: BMI 43.2
[2019-08-10 10:07] VITALS: BP 125/72; PULSE 98; RESP 16; TEMP 37.1; BMI 41.5
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
== END 2019-08-16 23:59 ==
LOC: WC 09:58
PROVIDERS: PCP Internal Medicine; Referring Provider Nurse Practitioner; Visit Provider Nurse Practitioner
DX: T81.31XA Disruption of external operation (surgical) wound, not elsewhere classified, initial encounter (principal); Y83.8 Other surgical procedures as the cause of abnormal reaction of the patient, or of later complication, without mention of misadventure at the time of the procedure; S72.302S Unspecified fracture of shaft of left femur, sequela; V43.93 Unspecified car occupant injured in collision with pick-up truck in traffic accident; E66.01 Morbid (severe) obesity due to excess calories; I10 Essential (primary) hypertension; F10.21 Alcohol dependence, in remission; Z79.899 Other long term (current) drug therapy; Z79.82 Long term (current) use of aspirin; F17.200 Nicotine dependence, unspecified, uncomplicated
CPT/HCPCS: 11042; 87070; 87075; 87205; 99212; G0463

== ENCOUNTER 2019-09-08 15:00 | Outpatient (RCR) | payer MEDICAID, SELFPAY ==
[2019-08-17 00:39] VITALS: BP 125/72; PULSE 98; RESP 16; TEMP 37.1
[2019-08-17 14:47] VITALS: BP 154/77; PULSE 91; RESP 18; TEMP 36.1; BMI 41.5
== END 2019-09-16 23:59 | disposition home or self-care (01) ==
LOC: WC 15:00
PROVIDERS: PCP Internal Medicine; Referring Provider Internal Medicine; Visit Provider Nurse Practitioner Family
DX: Z04.89 Encounter for examination and observation for other specified reasons (principal)
CPT/HCPCS: 99212; G0463

== ENCOUNTER 2019-11-23 10:59 | Outpatient (RCR) | payer MEDICAID, SELFPAY ==
[2019-08-31 14:13] VITALS: BMI 43.9
== END 2019-11-23 11:25 | disposition home or self-care (01) ==
LOC: PT 10:59
DX: Z04.1 Encounter for examination and observation following transport accident (principal)

== ENCOUNTER 2020-01-06 08:30 | Outpatient (RCR) | payer MEDICAID, SELFPAY ==
[2019-07-27 13:18] VITALS: BMI 43.2
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
== END 2020-01-06 13:19 | disposition home or self-care (01) ==
LOC: PT 08:30
PROVIDERS: Referring Provider Internal Medicine; Visit Provider Internal Medicine
DX: S72.302D Unspecified fracture of shaft of left femur, subsequent encounter for closed fracture with routine healing (principal); S22.20XD Unspecified fracture of sternum, subsequent encounter for fracture with routine healing; S22.43XD Multiple fractures of ribs, bilateral, subsequent encounter for fracture with routine healing; S32.402D Unspecified fracture of left acetabulum, subsequent encounter for fracture with routine healing; S52.022D Displaced fracture of olecranon process without intraarticular extension of left ulna, subsequent encounter for closed fracture with routine healing; S26.91XD Contusion of heart, unspecified with or without hemopericardium, subsequent encounter; V44.5XXD Car driver injured in collision with heavy transport vehicle or bus in traffic accident, subsequent encounter
CPT/HCPCS: 97110; 97112; 97162; 97164